=== PATIENT | female | born 1935 | race Caucasian/White ===

== ENCOUNTER 2022-09-15 18:15 | Inpatient (IN) ==
[2022-09-15] MEDS ORDERED: ONDANSETRON 4 MG/2 ML VIAL IV PRN (23:32)
[2022-09-15] MEDS ORDERED: ACETAMINOPHEN 325 MG TABLET PO PRN (23:32)
[2022-09-15] MEDS ORDERED: hydrALAZINE 20 MG/1 ML VIAL IV PRN (23:32)
[2022-09-16 00:17] LABS: Basophils % 0.3 % (0.0-0.8); Hematocrit 35.8 VOL% (35.7-47.0); Hemoglobin 11.3 GM/DL (12.0-16.0); Immature Granulocytes % 0.5 %; Immature Granulocytes Absolute 0.03 #; Lymphocytes # 1.3 10*3/uL (1.4-4.0); Lymphocytes % 20.9 % (21.3-54.2); Mean Corpuscular HGB Conc 31.6 GM/DL (32-36); Mean Corpuscular Volume 103.8 FL (87-102); Mean Platelet Volume 11.4 FL (9.6-12.0); Monocytes # 0.6 10*3/uL (0.11-0.8); Monocytes % 9.6 % (1.7-12.7); Neutrophils % 68.7 % (38.7-73.9); Platelet Count 146 T/CUMM (130-400); Red Blood Count 3.45 MC/CUMM (3.8-5.5); Red Cell Distribution Width 14.5 % (9.3-17.3); White Blood Count 6.4 T/CUMM (4-12)
[2022-09-16 00:19] LABS: Calcium 9.1 MG/DL (8.5-10.1); Osmolality,Calculated 291.1 MOS/KG (273-304); Potassium 4.4 MMOL/L (3.5-5.1)
[2022-09-16] MEDS: cefTRIAXone 1,000 MG in SODIUM CHLORIDE 0.9% 100 ML IV SCH (00:44)
[2022-09-16] MEDS: SODIUM CHLORIDE 0.9% 1,000 ML IV SCH ×3 (00:44→20:47)
[2022-09-16 02:16] LABS: Bilirubin,Urine Negative (Negative); Blood, Urine Moderate mg/dL (Negative); Glucose,Urine (UA) Negative (Negative); Ketones,Urine Negative (Negative); Nitrite,Urine Negative (Negative); Protein,Urine 100 mg/dL (Negative); RBC,Urine 5 /HPF (0-4); Squamous Epithelial Cell,Urine Occasional /HPF (0-10); Urine Appearance CLOUDY (Clear); Urine Color Yellow (Yellow); Urine Urobilinogen < 2.0 eU/dL (<2.0)
[2022-09-16] MEDS: AZITHROMYCIN 250 MG TABLET PO SCH (09:26)
[2022-09-17] MEDS: cefTRIAXone 1,000 MG in SODIUM CHLORIDE 0.9% 100 ML IV SCH (03:13)
[2022-09-17] MEDS: SODIUM CHLORIDE 0.9% 1,000 ML IV SCH (05:47)
[2022-09-17 05:50] LABS: Basophils % 0.4 % (0.0-0.8); Hematocrit 29.7 VOL% (35.7-47.0); Hemoglobin 9.5 GM/DL (12.0-16.0); Immature Granulocytes % 0.4 %; Immature Granulocytes Absolute 0.02 #; Lymphocytes # 1.1 10*3/uL (1.4-4.0); Lymphocytes % 22.5 % (21.3-54.2); Mean Corpuscular Volume 103.8 FL (87-102); Monocytes # 0.5 10*3/uL (0.11-0.8); Monocytes % 10.6 % (1.7-12.7); Neutrophils % 66.1 % (38.7-73.9); Platelet Count 129 T/CUMM (130-400); Red Blood Count 2.86 MC/CUMM (3.8-5.5); Red Cell Distribution Width 14.2 % (9.3-17.3)
[2022-09-17 06:21] LABS: Calcium 8.6 MG/DL (8.5-10.1); Osmolality,Calculated 297.4 MOS/KG (273-304); Potassium 4.3 MMOL/L (3.5-5.1)
[2022-09-17] MEDS ORDERED: MAGNESIUM SULF RIDER 2 GM/50 ML PREMIX IV ONE (08:16)
[2022-09-17] MEDS: FERROUS SULFATE 325 MG TABLET PO SCH (08:52)
[2022-09-17] MEDS: AZITHROMYCIN 250 MG TABLET PO SCH (08:52)
[2022-09-17] MEDS: ISOSORBIDE MONONITRATE 30 MG TABLET PO SCH (08:52)
[2022-09-17] MEDS: allopurinoL 300 MG TABLET PO SCH (08:52)
[2022-09-17] MEDS: APIXABAN 2.5 MG TABLET PO SCH ×2 (08:53→21:34)
[2022-09-17] MEDS: PANTOPRAZOLE 40 MG TABLET PO SCH (08:53)
[2022-09-17] MEDS: amLODIPine 5 MG TABLET PO SCH (08:53)
[2022-09-17] MEDS: FLUoxetine 20 MG CAPSULE PO SCH (08:53)
[2022-09-17] MEDS: METOPROLOL SUCCINATE XL 25 MG TABLET PO SCH (08:53)
[2022-09-17] MEDS: ASPIRIN EC 81 MG TABLET PO SCH (08:55)
[2022-09-17] MEDS: SODIUM CHLORIDE 0.45% 1,000 ML IV SCH ×2 (09:00→21:35)
[2022-09-17] MEDS: LEVOTHYROXINE 125 MCG TABLET PO SCH (10:20)
[2022-09-17] MEDS: POLYETHYLENE GLYCOL POWDER 17 GM PACK PO SCH (17:25)
[2022-09-18] MEDS: cefTRIAXone 1,000 MG in SODIUM CHLORIDE 0.9% 100 ML IV SCH (04:37)
[2022-09-18] MEDS: LEVOTHYROXINE 125 MCG TABLET PO SCH (05:46)
[2022-09-18 06:07] LABS: Basophils % 0.4 % (0.0-0.8); Hematocrit 29.1 VOL% (35.7-47.0); Hemoglobin 9.2 GM/DL (12.0-16.0); Immature Granulocytes % 0.2 %; Immature Granulocytes Absolute 0.01 #; Lymphocytes # 1.4 10*3/uL (1.4-4.0); Lymphocytes % 25.8 % (21.3-54.2); Mean Corpuscular HGB Conc 31.6 GM/DL (32-36); Mean Corpuscular Volume 103.9 FL (87-102); Mean Platelet Volume 11.2 FL (9.6-12.0); Monocytes # 0.6 10*3/uL (0.11-0.8); Monocytes % 10.1 % (1.7-12.7); Neutrophils % 63.5 % (38.7-73.9); Platelet Count 123 T/CUMM (130-400); Red Cell Distribution Width 14.4 % (9.3-17.3); White Blood Count 5.5 T/CUMM (4-12)
[2022-09-18 06:37] LABS: Calcium 9.1 MG/DL (8.5-10.1); Osmolality,Calculated 295.7 MOS/KG (273-304); Potassium 4.7 MMOL/L (3.5-5.1)
[2022-09-18] MEDS: SODIUM CHLORIDE 0.45% 1,000 ML IV SCH ×2 (07:35→16:32)
[2022-09-18] MEDS: ISOSORBIDE MONONITRATE 30 MG TABLET PO SCH (09:34)
[2022-09-18] MEDS: ASPIRIN EC 81 MG TABLET PO SCH (09:34)
[2022-09-18] MEDS: allopurinoL 300 MG TABLET PO SCH (09:34)
[2022-09-18] MEDS: APIXABAN 2.5 MG TABLET PO SCH ×2 (09:34→21:16)
[2022-09-18] MEDS: POLYETHYLENE GLYCOL POWDER 17 GM PACK PO SCH (09:34)
[2022-09-18] MEDS: AZITHROMYCIN 250 MG TABLET PO SCH (09:34)
[2022-09-18] MEDS: FLUoxetine 20 MG CAPSULE PO SCH (09:35)
[2022-09-18] MEDS: PANTOPRAZOLE 40 MG TABLET PO SCH (09:35)
[2022-09-18] MEDS: METOPROLOL SUCCINATE XL 25 MG TABLET PO SCH (09:35)
[2022-09-18] MEDS: FERROUS SULFATE 325 MG TABLET PO SCH (09:35)
[2022-09-18] MEDS: amLODIPine 5 MG TABLET PO SCH (09:35)
[2022-09-18] MEDS ORDERED: amLODIPine 5 MG TABLET PO ONE (10:45)
[2022-09-18] MEDS ORDERED: ZINC OXIDE PASTE 113 GM TUBE TOP PRN (11:58)
[2022-09-19] MEDS: SODIUM CHLORIDE 0.45% 1,000 ML IV SCH ×2 (02:10→11:23)
[2022-09-19] MEDS: cefTRIAXone 1,000 MG in SODIUM CHLORIDE 0.9% 100 ML IV SCH (04:15)
[2022-09-19] MEDS: LEVOTHYROXINE 125 MCG TABLET PO SCH (06:28)
[2022-09-19] MEDS ORDERED: amLODIPine 10 MG TABLET PO SCH (09:00)
[2022-09-19] MEDS: ASPIRIN EC 81 MG TABLET PO SCH (09:38)
[2022-09-19] MEDS: POLYETHYLENE GLYCOL POWDER 17 GM PACK PO SCH (09:38)
[2022-09-19] MEDS: PANTOPRAZOLE 40 MG TABLET PO SCH (09:38)
[2022-09-19] MEDS: allopurinoL 300 MG TABLET PO SCH (09:39)
[2022-09-19] MEDS: METOPROLOL SUCCINATE XL 25 MG TABLET PO SCH (09:39)
[2022-09-19] MEDS: FLUoxetine 20 MG CAPSULE PO SCH (09:39)
[2022-09-19] MEDS: FERROUS SULFATE 325 MG TABLET PO SCH (09:39)
[2022-09-19] MEDS: AZITHROMYCIN 250 MG TABLET PO SCH (09:39)
[2022-09-19] MEDS: ISOSORBIDE MONONITRATE 30 MG TABLET PO SCH (09:39)
[2022-09-19] MEDS: APIXABAN 2.5 MG TABLET PO SCH (09:39)
[2022-09-19 11:50] VITALS: BP 152/82
== END 2022-09-19 14:56 | disposition swing bed (61) | DRG 689 ==
LOC: N.2W → SUATTDRO 21:39 → N.3E 09-16 17:33
PROVIDERS: ADMIT Internal Medicine; ATTEND Internal Medicine